=== PATIENT | male | born 1980 | race Caucasian/White ===

== ENCOUNTER 2019-07-14 02:39 | Inpatient (IN) | payer MEDICAID ==
[~2019-07-14] VITALS: Ht 175.3 cm; Wt 76.0 kg
--- NOTE | 2019-07-14 03:15 | NUR ---
PT PRESENTED WITH C/O ABSCESS TO RIGHT FOREARM X 3 DAYS. MONITORS APPLIED, SIDERAILSUP X2, CALL LIGHT WITHIN REACH. PA AT BEDSIDE FOR EVAL
[2019-07-14] MEDS ORDERED: PIPERACILLIN/TAZO/PMX 3.375GM 50 ML IV ONE (03:30)
[2019-07-14] MEDS ORDERED: VANCOMYCIN PER PHARMACY MC ONE (03:30)
[2019-07-14] MEDS ORDERED: LIDOCAINE-MPF 1%, 5ML INFIL ONE (03:30)
[2019-07-14] MEDS ORDERED: LIDOCAINE-MPF 1%, 5ML ONE ×2 (03:36→03:38)
[2019-07-14] MEDS ORDERED: PIPERACILLIN/TAZO/PMX 3.375GM 50 ML ONE (03:37)
[2019-07-14] MEDS ORDERED: PHARMACOKINETIC CONSULTATION MC ONE (04:00)
[2019-07-14] MEDS ORDERED: VANCOMYCIN 1,500 MG in SODIUM CHLORIDE 0.9% 250 ML IV ONE (04:00)
[2019-07-14 04:18] LABS: BASOPHILS # (AUTO) 0.05 x10^3/uL (0-0.1); BASOPHILS % (AUTO) 0 % (0-1); EOSINOPHILS # (AUTO) 0.46 x10^3/uL (0-0.4); EOSINOPHILS % (AUTO) 3 % (1-7); LYMPHOCYTES # (AUTO) 2.33 x10^3/uL (1-3.4); LYMPHOCYTES % (AUTO) 17 % (22-44); MD NO; MEAN CORPUSCULAR HEMOGLOBIN 30.7 pg (27.5-34.5); MEAN CORPUSCULAR VOLUME 92.9 fL (81-97); MEAN PLATELET VOLUME 7.1 fL (7.4-10.4); MONOCYTES # (AUTO) 1.15 x10^3/uL (0.2-0.8); MONOCYTES % (AUTO) 8 % (2-9); NEUTROPHILS # (AUTO) 10.16 x10^3/uL (1.8-6.8); NEUTROPHILS % (AUTO) 72 % (42-75); PLATELET COUNT 276 x10^3/uL (130-400); RED BLOOD COUNT 4.05 x10^6/uL (4.38-5.82)
--- NOTE | 2019-07-14 04:21 | NUR ---
IV ABX INFUSING
--- NOTE | 2019-07-14 04:24 | NUR ---
TP RN: PT. TO BE ADMIT TO HOSPITAL. PT. HAS [employer]. CALLED ANABEL MCDONALD CM AT [facility] AND PER HER PT. TO STAY HERE UNLESS HIGHER LEVEL OF CARE REQUIRED.
[2019-07-14 04:31] LABS: ANION GAP 8 mmol/L (5-15); CALCIUM 8.7 mg/dL (8.5-10.1); CHLORIDE 104 mmol/L (98-107); CREATININE 0.71 mg/dL (0.7-1.3)
--- NOTE | 2019-07-14 04:34 | NUR ---
PA AT PT'S BEDSIDE FOR I&D
--- NOTE | 2019-07-14 06:06 | NUR ---
DRESSING CHANGE COMPLETED TO RIGHT FOREARM I&D SITE, 2X2 GAUZE AND TEGADERM. PT RESTING CALMLY, MONITORS IN PLACE, CALL LIGHT WITHIN REACH, IV ABX INFUSING
--- NOTE | 2019-07-14 06:51 | NUR ---
RECEIVED REPORT FROM DOUG. PT UPRIGHT ON GURNEY WITH EYES CLOSED, RESPONDS APPROP TO STAFF, NAD, COMFORT MEASURES PROVIDED, CALL LIGHT WITHIN REACH.
--- NOTE | 2019-07-14 06:52 | NUR ---
REPORT GIVEN TO ANABEL CHERRY
--- NOTE | 2019-07-14 07:16 | NUR ---
Pt to be admitted to medical, room 359. Report called to Arleth Vera
[2019-07-14] MEDS ORDERED: ACETAMINOPHEN 325 MG TABLET PO PRN (07:30)
[2019-07-14] MEDS ORDERED: OXYcodone IR 5MG TABLET PO PRN (07:30)
[2019-07-14] MEDS ORDERED: VANCOMYCIN PER PHARMACY MC PRN (07:30)
[2019-07-14] MEDS ORDERED: ONDANSETRON 2MG/ML, 2ML IVPush PRN (07:30)
[2019-07-14] MEDS: NICOTINE 21 MG/24 HR PATCH.TD24 TD SCH (07:30)
[2019-07-14] MEDS ORDERED: PHARMACOKINETIC MONITORING MC PRN (07:30)
[2019-07-14] MEDS ORDERED: ONDANSETRON ODT 4 MG PO PRN (07:30)
[2019-07-14] MEDS ORDERED: morphine SULFATE 10 MG/ML, 1ML IVPush PRN (07:30)
--- NOTE | 2019-07-14 07:33 | NUR ---
RETURNED FROM CT
[2019-07-14] MEDS: SODIUM CHLORIDE 0.9% 1,000 ML IV SCH (07:34)
[2019-07-14] MEDS: AMPICILLIN/SULBACTAM 3 GM in SODIUM CHLORIDE 0.9% 100 ML IV SCH ×3 (07:34→19:41)
[2019-07-14 08:03] VITALS: BP 109/66
[2019-07-14] MEDS ORDERED: OMNIPAQUE 350 MG/ML, 100ML BOTTLE ONE (08:04)
[2019-07-14] MEDS ORDERED: GADOTERATE 7.5 MMOL/15 ML SYR ONE (11:27)
[2019-07-14 14:00] VITALS: BP 112/65
[2019-07-14] MEDS: VANCOMYCIN 1,500 MG in SODIUM CHLORIDE 0.9% 250 ML IV SCH (17:33)
[2019-07-14 18:42] VITALS: BP 110/77
[2019-07-15 01:30] VITALS: BP 103/69
[2019-07-15] MEDS: SODIUM CHLORIDE 0.9% 1,000 ML IV SCH ×2 (01:36→15:57)
[2019-07-15] MEDS: AMPICILLIN/SULBACTAM 3 GM in SODIUM CHLORIDE 0.9% 100 ML IV SCH ×4 (01:46→19:48)
[2019-07-15] MEDS: VANCOMYCIN 1,500 MG in SODIUM CHLORIDE 0.9% 250 ML IV SCH ×2 (05:02→17:12)
[2019-07-15 05:32] LABS: BASOPHILS % (AUTO) 1 % (0-1); EOSINOPHILS # (AUTO) 0.47 x10^3/uL (0-0.4); EOSINOPHILS % (AUTO) 6 % (1-7); LYMPHOCYTES # (AUTO) 2.26 x10^3/uL (1-3.4); LYMPHOCYTES % (AUTO) 27 % (22-44); MD NO; MEAN CORPUSCULAR HEMOGLOBIN 30.3 pg (27.5-34.5); MEAN CORPUSCULAR HGB CONC 32.8 g/dL (33.2-36.2); MEAN CORPUSCULAR VOLUME 92.3 fL (81-97); MONOCYTES # (AUTO) 0.72 x10^3/uL (0.2-0.8); MONOCYTES % (AUTO) 9 % (2-9); NEUTROPHILS # (AUTO) 4.71 x10^3/uL (1.8-6.8); NEUTROPHILS % (AUTO) 57 % (42-75); PLATELET COUNT 280 x10^3/uL (130-400); RED BLOOD COUNT 4.26 x10^6/uL (4.38-5.82); RED CELL DISTRIBUTION WIDTH 15.2 % (9.4-14.8)
[2019-07-15 05:44] LABS: CHLORIDE 108 mmol/L (98-107)
[2019-07-15 05:55] LABS: ALANINE AMINOTRANSFERASE 22 U/L (12-78); ALBUMIN 2.9 g/dL (3.4-5.0); ALKALINE PHOSPHATASE 61 U/L (45-117); ANION GAP 7 mmol/L (5-15); BILIRUBIN,TOTAL 0.3 mg/dL (0.2-1.0); CALCIUM 8.4 mg/dL (8.5-10.1); CREATININE 0.75 mg/dL (0.7-1.3); TOTAL PROTEIN 7.3 g/dL (6.4-8.2)
[2019-07-15 06:47] VITALS: BP 108/59
[2019-07-15] MEDS: NICOTINE 21 MG/24 HR PATCH.TD24 TD SCH (07:30)
[2019-07-15 12:30] VITALS: BP 98/58
[2019-07-15] MEDS ORDERED: ENOXAPARIN 40 MG/0.4 ML SQ SCH (13:00)
[2019-07-15 19:57] VITALS: BP 108/71
[2019-07-16] MEDS: AMPICILLIN/SULBACTAM 3 GM in SODIUM CHLORIDE 0.9% 100 ML IV SCH ×2 (01:51→07:35)
[2019-07-16 02:24] VITALS: BP 107/62
[2019-07-16] MEDS: VANCOMYCIN 1,500 MG in SODIUM CHLORIDE 0.9% 250 ML IV SCH (05:22)
[2019-07-16] MEDS: NICOTINE 21 MG/24 HR PATCH.TD24 TD SCH (07:20)
[2019-07-16] MEDS: SODIUM CHLORIDE 0.9% 1,000 ML IV SCH (07:34)
[2019-07-16 08:01] VITALS: BP 95/56
== END 2019-07-16 11:40 | disposition left against medical advice (07) | DRG 603 ==
LOC: ED 04:14 → EDIP 06:32 → 3N 07:16
PROVIDERS: ADMIT Internal Medicine; ATTEND Internal Medicine
PROC: 0X9D0ZZ Drainage of Right Lower Arm, Open Approach (ICD-10-PCS; principal; 2019-07-14)
PROC: 0X9D0ZZ Drainage of Right Lower Arm, Open Approach (ICD-10-PCS; 2019-07-14)
DX: L02.413 Cutaneous abscess of right upper limb (principal); L03.113 Cellulitis of right upper limb; F19.10 Other psychoactive substance abuse, uncomplicated; M60.9 Myositis, unspecified; F17.210 Nicotine dependence, cigarettes, uncomplicated; F15.90 Other stimulant use, unspecified, uncomplicated; Z86.14 Personal history of Methicillin resistant Staphylococcus aureus infection; M72.9 Fibroblastic disorder, unspecified; M72.8 Other fibroblastic disorders
CPT/HCPCS: 36415; 80048; 80053; 80202; 82040; 85025; 87040; 87070; 87205; 99285; G0378; J0295; J2543; J3370; Q9967; A9575; J7030; J7050

== ENCOUNTER 2019-10-30 21:36 | Inpatient (IN) | payer MEDICAID ==
[~2019-10-30] VITALS: Ht 175.3 cm; Wt 75.0 kg
[2019-10-30 22:29] LABS: BASOPHILS # (AUTO) 0.05 x10^3/uL (0-0.1); BASOPHILS % (AUTO) 0 % (0-1); EOSINOPHILS # (AUTO) 0.25 x10^3/uL (0-0.4); EOSINOPHILS % (AUTO) 2 % (1-7); LYMPHOCYTES # (AUTO) 1.84 x10^3/uL (1-3.4); LYMPHOCYTES % (AUTO) 16 % (22-44); MD NO; MEAN CORPUSCULAR HEMOGLOBIN 30.3 pg (27.5-34.5); MEAN CORPUSCULAR HGB CONC 33.9 g/dL (33.2-36.2); MEAN CORPUSCULAR VOLUME 89.4 fL (81-97); MEAN PLATELET VOLUME 7.6 fL (7.4-10.4); MONOCYTES # (AUTO) 0.92 x10^3/uL (0.2-0.8); MONOCYTES % (AUTO) 8 % (2-9); NEUTROPHILS # (AUTO) 8.33 x10^3/uL (1.8-6.8); NEUTROPHILS % (AUTO) 73 % (42-75); PLATELET COUNT 248 x10^3/uL (130-400); RED BLOOD COUNT 4.52 x10^6/uL (4.38-5.82); RED CELL DISTRIBUTION WIDTH 17.2 % (9.4-14.8)
[2019-10-30 22:32] LABS: ALBUMIN 3.4 g/dL (3.4-5.0); ANION GAP 5 mmol/L (5-15); CALCIUM 8.8 mg/dL (8.5-10.1); CHLORIDE 105 mmol/L (98-107); CREATININE 0.89 mg/dL (0.7-1.3)
[2019-10-30] MEDS ORDERED: PIPERACILLIN/TAZO/PMX 3.375GM 0 ML ONE (23:29)
[2019-10-30] MEDS ORDERED: VANCOMYCIN PER PHARMACY MC PRN (23:30)
[2019-10-30] MEDS ORDERED: AMPICILLIN/SULBACTAM 3 GM in SODIUM CHLORIDE 0.9% 100 ML IV ONE (23:30)
--- NOTE | 2019-10-30 23:30 | NUR ---
PT SITTING UPRIGHT IN BED DRAWING. NO NEEDS AT THIS TIME.
[2019-10-30] MEDS ORDERED: VANCOMYCIN 1,600 MG in SODIUM CHLORIDE 0.9% 250 ML IV ONE (23:45)
--- NOTE | 2019-10-31 00:30 | NUR ---
PT RESTING WITH EYES CLOSED. 3PS ADDRESSED.
[2019-10-31 01:14] VITALS: BP 116/72
[2019-10-31] MEDS ORDERED: ACETAMINOPHEN 325 MG TABLET PO PRN (01:30)
[2019-10-31] MEDS ORDERED: VANCOMYCIN PER PHARMACY MC PRN (01:30)
[2019-10-31] MEDS ORDERED: ONDANSETRON 2MG/ML, 2ML IVPush PRN (01:30)
[2019-10-31] MEDS: LACTATED RINGERS 1,000 ML IV SCH ×2 (01:44→17:29)
[2019-10-31] MEDS ORDERED: PHARMACOKINETIC MONITORING MC PRN (02:00)
[2019-10-31 03:07] VITALS: BP 114/68
[2019-10-31] MEDS: AMPICILLIN/SULBACTAM 3 GM in SODIUM CHLORIDE 0.9% 100 ML IV SCH ×4 (04:57→23:13)
[2019-10-31 07:28] VITALS: BP 111/73
[2019-10-31] MEDS: SENNA/DOCUSATE TABLET PO SCH (07:54)
[2019-10-31] MEDS: VANCOMYCIN 1,500 MG in SODIUM CHLORIDE 0.9% 250 ML IV SCH (12:16)
[2019-10-31 15:14] VITALS: BP 115/69
[2019-10-31] MEDS: HYDROcodone/APAP 5/325 TABLET PO PRN ×2 (18:10→23:20)
[2019-10-31 18:27] VITALS: BP 122/75
[2019-11-01 01:20] VITALS: BP 111/68
[2019-11-01] MEDS: VANCOMYCIN 1,500 MG in SODIUM CHLORIDE 0.9% 250 ML IV SCH ×2 (02:01→14:28)
[2019-11-01] MEDS: AMPICILLIN/SULBACTAM 3 GM in SODIUM CHLORIDE 0.9% 100 ML IV SCH ×3 (05:35→18:09)
[2019-11-01 08:12] LABS: ANION GAP 7 mmol/L (5-15); CALCIUM 8.5 mg/dL (8.5-10.1); CHLORIDE 113 mmol/L (98-107); CREATININE 0.85 mg/dL (0.7-1.3)
[2019-11-01 08:15] VITALS: BP 123/76
[2019-11-01] MEDS: SENNA/DOCUSATE TABLET PO SCH (09:00)
[2019-11-01] MEDS: HYDROcodone/APAP 5/325 TABLET PO PRN ×2 (09:27→19:20)
[2019-11-01 10:05] LABS: BASOPHILS # (AUTO) 0.04 x10^3/uL (0-0.1); BASOPHILS % (AUTO) 0 % (0-1); EOSINOPHILS # (AUTO) 0.28 x10^3/uL (0-0.4); EOSINOPHILS % (AUTO) 3 % (1-7); LYMPHOCYTES # (AUTO) 1.22 x10^3/uL (1-3.4); LYMPHOCYTES % (AUTO) 13 % (22-44); MD NO; MEAN CORPUSCULAR HGB CONC 33.1 g/dL (33.2-36.2); MEAN CORPUSCULAR VOLUME 90.7 fL (81-97); MEAN PLATELET VOLUME 7.9 fL (7.4-10.4); MONOCYTES # (AUTO) 0.83 x10^3/uL (0.2-0.8); MONOCYTES % (AUTO) 9 % (2-9); NEUTROPHILS # (AUTO) 7.06 x10^3/uL (1.8-6.8); NEUTROPHILS % (AUTO) 75 % (42-75); PLATELET COUNT 248 x10^3/uL (130-400); RED BLOOD COUNT 4.84 x10^6/uL (4.38-5.82); RED CELL DISTRIBUTION WIDTH 17.4 % (9.4-14.8)
[2019-11-01] MEDS: LACTATED RINGERS 1,000 ML IV SCH (11:18)
[2019-11-01 13:19] VITALS: BP 115/69
[2019-11-01 20:51] VITALS: BP 113/75
[2019-11-02] MEDS: AMPICILLIN/SULBACTAM 3 GM in SODIUM CHLORIDE 0.9% 100 ML IV SCH ×4 (00:27→18:30)
[2019-11-02] MEDS: HYDROcodone/APAP 5/325 TABLET PO PRN ×3 (00:27→11:12)
[2019-11-02 01:35] VITALS: BP 103/68
[2019-11-02] MEDS: VANCOMYCIN 1,500 MG in SODIUM CHLORIDE 0.9% 250 ML IV SCH ×2 (03:29→15:09)
[2019-11-02] MEDS: LACTATED RINGERS 1,000 ML IV SCH (06:15)
[2019-11-02 08:40] VITALS: BP 102/67
[2019-11-02] MEDS: SENNA/DOCUSATE TABLET PO SCH (08:56)
[2019-11-02] MEDS ORDERED: NICOTINE 14MG/24 HR PATCH.TD24 TD SCH (13:00)
[2019-11-02] MEDS ORDERED: HYDROcodone/APAP 10/325 MG TABLET PO PRN (15:00)
[2019-11-02 16:13] VITALS: BP 110/72
[2019-11-02] MEDS ORDERED: VANCOMYCIN 1,500 MG in SODIUM CHLORIDE 0.9% 250 ML IV SCH (23:00)
== END 2019-11-02 20:00 | disposition left against medical advice (07) | DRG 603 ==
LOC: ED 10-31 00:34 → EDIP 10-31 00:35 → 3N 10-31 01:00
PROVIDERS: ADMIT Family Medicine; ATTEND Family Medicine
DX: L03.012 Cellulitis of left finger (principal); L03.114 Cellulitis of left upper limb; L02.512 Cutaneous abscess of left hand; F11.90 Opioid use, unspecified, uncomplicated; F15.90 Other stimulant use, unspecified, uncomplicated; F17.210 Nicotine dependence, cigarettes, uncomplicated; F19.10 Other psychoactive substance abuse, uncomplicated; Z91.19 Patient's noncompliance with other medical treatment and regimen; Z79.899 Other long term (current) drug therapy; Z53.29 Procedure and treatment not carried out because of patient's decision for other reasons
CPT/HCPCS: 36415; 80048; 80202; 82040; 85025; 87040; 99285; G0378; J0295; J3370; J7050; J7120